=== PATIENT | male | born 1995 | race African-American/Black ===

== ENCOUNTER 2021-09-26 12:26 | Emergency (ER) | payer MEDICAID ==
[~2021-09-26] VITALS: Ht 175.3 cm; Wt 147.9 kg
--- NOTE | 2021-09-26 13:10 | NUR ---
DR BURGER AT BEDSIDE
--- NOTE | 2021-09-26 14:12 | NUR ---
Patient discharged to home in stable condition. Written and verbal after care instructions given. Patient verbalizes understanding of instruction.
[2021-09-26 14:14] VITALS: BP 125/69
== END 2021-09-26 14:14 | disposition home or self-care (01) ==
LOC: ER 12:28
DX: R26.81 Unsteadiness on feet (principal); Z86.69 Personal history of other diseases of the nervous system and sense organs; W01.0XXA Fall on same level from slipping, tripping and stumbling without subsequent striking against object, initial encounter; Y93.89 Activity, other specified; Y92.89 Other specified places as the place of occurrence of the external cause; Y99.8 Other external cause status
CPT/HCPCS: 70450-TC